=== PATIENT | female | born 1955 | race Caucasian/White ===

== ENCOUNTER 2018-01-29 05:11 | Day surgery (SDC) | payer BC ==
[2018-01-23 10:38] VITALS: BP 153/91
[~2018-01-29] VITALS: Ht 170.2 cm; Wt 119.1 kg
[~2018-01-29 05:11] MED LIST: CHOL40002 PO; DULO30CA2 PO; ESTR2TAB PO; LAMO200T49 PO; LEVO175T5 PO; MULT-230 PO; OMEG-14 PO; OMEG-173 PO; PREN1TAB84 PO
[2018-01-29] MEDS ORDERED: LACTATED RINGERS 1,000 ML IV SCH (05:56)
[2018-01-29] MEDS ORDERED: PROBIOTIC PO (05:58)
[2018-01-29] MEDS ORDERED: LIDOCAINE-MPF 1%, 2ML INFIL PRN (06:00)
[2018-01-29] MEDS ORDERED: LIDOCAINE-MPF 1%, 2ML ONE (06:06)
[2018-01-29] MEDS ORDERED: EPINEPHRINE 1 MG/ML, 1ML ONE (06:15)
[2018-01-29] MEDS ORDERED: BUPIVACAINE/PF 0.25% ONE (06:15)
[2018-01-29] MEDS ORDERED: FENTANYL PF 100 MCG/2ML ONE (06:23)
[2018-01-29] MEDS ORDERED: MIDAZOLAM 1 MG/ML, 2ML ONE (06:23)
[2018-01-29] MEDS ORDERED: PROPOFOL 10 MG/ML, 20ML ONE (06:25)
[2018-01-29] MEDS ORDERED: SUCCINYLCHOLINE 20 MG/ML, 10ML ONE (06:25)
[2018-01-29] MEDS ORDERED: ROCURONIUM 10 MG/ML,10ML ONE (06:25)
[2018-01-29] MEDS ORDERED: MEPERIDINE/PF 25MG/0.5ML IVPush PRN (08:00)
[2018-01-29] MEDS ORDERED: ACETAMINOPHEN 325 MG TABLET PO PRN (08:00)
[2018-01-29] MEDS ORDERED: OXYcodone 5 MG/5 ML ORAL.SOL UDC PO PRN (08:00)
[2018-01-29] MEDS ORDERED: ALBUTEROL SULFATE 2.5 MG/3 ML NPPB PRN (08:00)
[2018-01-29] MEDS ORDERED: FENTANYL PF 100 MCG/2ML IV PRN (08:00)
[2018-01-29] MEDS ORDERED: PROMETHAZINE 25 MG/ML, 1ML IV PRN (08:00)
[2018-01-29] MEDS ORDERED: ACETAMINOPHEN 650 MG/20.3 ML UDC ONE (09:25)
[2018-01-29] MEDS ORDERED: OXYcodone 5 MG/5 ML ORAL.SOL UDC ONE (09:26)
[2018-01-29] MEDS ORDERED: CEFAZOLIN 1,000 MG ONE (15:27)
[2018-01-29] MEDS ORDERED: ONDANSETRON 2MG/ML, 2ML ONE (15:27)
[2018-01-29] MEDS ORDERED: EPHEDRINE 50 MG/ML, 1ML ONE (15:27)
[2018-01-29] MEDS ORDERED: DEXAMETHASONE 4 MG/ML, 1ML ONE (15:27)
== END 2018-01-29 11:40 ==
LOC: OUT 05:11
PROVIDERS: ATTEND Orthopaedic Surgery
DX: M75.112 Incomplete rotator cuff tear or rupture of left shoulder, not specified as traumatic (principal); M75.42 Impingement syndrome of left shoulder; M24.112 Other articular cartilage disorders, left shoulder; M66.822 Spontaneous rupture of other tendons, left upper arm; Z87.891 Personal history of nicotine dependence; Z88.8 Allergy status to other drugs, medicaments and biological substances
CPT/HCPCS: 29822; 29826; 29827; 29828; C1713; J0171; J0330; J0690; J1100; J2250; J2405; J2704; J3010; J3490

== ENCOUNTER → 2018-07-17 | Outpatient (CLI) | payer BC ==
[~2018-07-17] MED LIST changes: +ASCO100019 PO; +ASPI-496 PO; +MAGN250T8 PO; +PROBIOTIC PO; +TOPI100T24 PO
== END | disposition home or self-care (01) ==
LOC: STAR 13:09
PROVIDERS: ATTEND Orthopaedic Surgery
DX: Z01.818 Encounter for other preprocedural examination (principal); M75.41 Impingement syndrome of right shoulder
CPT/HCPCS: 93005

== ENCOUNTER 2018-07-23 09:46 | Day surgery (SDC) | payer BC ==
[~2018-07-23] VITALS: Ht 170.2 cm; Wt 121.5 kg
[~2018-07-23 09:46] MED LIST changes: +BUPIVACAINE/PF-EPI 0.25% 1:200K ONE; +FENTANYL PF 100 MCG/2ML ONE; +MIDAZOLAM 1 MG/ML, 2ML ONE
[2018-07-23] MEDS ORDERED: LACTATED RINGERS 1,000 ML IV SCH (09:54)
[2018-07-23] MEDS ORDERED: LIDOCAINE-MPF 1%, 2ML INFIL ONE (10:00)
[2018-07-23] MEDS ORDERED: ACETAMINOPHEN 500 MG TABLET PO ONE (10:00)
[2018-07-23] MEDS ORDERED: SCOPOLAMINE PATCH, 1.5MG PATCH.TD72 TD ONE (10:00)
[2018-07-23] MEDS ORDERED: GABAPENTIN 300 MG CAPSULE PO ONE (10:00)
[2018-07-23] MEDS ORDERED: FENTANYL PF 100 MCG/2ML IV PRN (10:30)
[2018-07-23] MEDS ORDERED: PROCHLORPERAZINE 5 MG/ML, 2ML IV PRN (10:30)
[2018-07-23] MEDS ORDERED: PROMETHAZINE 25 MG/ML, 1ML IV PRN (10:30)
[2018-07-23] MEDS ORDERED: OXYcodone 5 MG/5 ML ORAL.SOL UDC PO PRN (10:30)
[2018-07-23] MEDS ORDERED: DIPHENHYDRAMINE 50 MG/ML, 1ML IVPush PRN (10:30)
[2018-07-23] MEDS ORDERED: LABETALOL 5MG/ML, 20ML IV PRN (10:30)
[2018-07-23] MEDS ORDERED: HYDROmorphone 1 MG/ML, 1ML IV PRN (10:30)
[2018-07-23] MEDS ORDERED: EPHEDRINE 50 MG/ML, 1ML ONE (11:30)
[2018-07-23] MEDS ORDERED: ONDANSETRON 2MG/ML, 2ML ONE (12:22)
[2018-07-23] MEDS ORDERED: PROPOFOL 10 MG/ML, 20ML ONE (12:22)
[2018-07-23] MEDS ORDERED: GLYCOPYRROLATE 0.2MG/1ML, 5ML ONE (12:22)
[2018-07-23] MEDS ORDERED: CEFAZOLIN 1,000 MG ONE (12:22)
[2018-07-23] MEDS ORDERED: SUCCINYLCHOLINE 20 MG/ML, 10ML ONE (12:22)
[2018-07-23] MEDS ORDERED: NEOSTIGMINE 1 MG/ML, 10ML ONE (12:22)
[2018-07-23] MEDS ORDERED: ROCURONIUM 10MG/ML,5ML ONE (12:22)
[2018-07-23] MEDS ORDERED: DEXAMETHASONE 4 MG/ML, 1ML ONE (12:22)
== END 2018-07-23 15:30 | disposition home or self-care (01) ==
LOC: OUT 09:46
PROVIDERS: ATTEND Orthopaedic Surgery
DX: S43.431A Superior glenoid labrum lesion of right shoulder, initial encounter (principal); S46.011A Strain of muscle(s) and tendon(s) of the rotator cuff of right shoulder, initial encounter; M75.41 Impingement syndrome of right shoulder; Z87.891 Personal history of nicotine dependence; Z79.82 Long term (current) use of aspirin; Z79.899 Other long term (current) drug therapy; Z98.890 Other specified postprocedural states; F39 Unspecified mood [affective] disorder; E03.9 Hypothyroidism, unspecified; E66.01 Morbid (severe) obesity due to excess calories; Z68.41 Body mass index [BMI] 40.0-44.9, adult; Z88.8 Allergy status to other drugs, medicaments and biological substances; X58.XXXA Exposure to other specified factors, initial encounter; Y93.89 Activity, other specified; Y92.89 Other specified places as the place of occurrence of the external cause; Y99.8 Other external cause status
CPT/HCPCS: 29822; 29826; 29827; 64415; C1713; J0330; J0690; J1100; J2250; J2405; J2704; J2710; J3010; J3490; J7120

== ENCOUNTER 2018-08-10 15:52 | Inpatient (IN) | payer BC ==
[~2018-08-10] VITALS: Ht 170.2 cm; Wt 121.5 kg
[~2018-08-10 15:52] MED LIST changes: -BUPIVACAINE/PF-EPI 0.25% 1:200K ONE; -FENTANYL PF 100 MCG/2ML ONE; -MIDAZOLAM 1 MG/ML, 2ML ONE
[2018-08-10 16:22] LABS: BASOPHILS # (AUTO) 0.01 x10^3/uL (0-0.1); BASOPHILS % (AUTO) 0 % (0-1); EOSINOPHILS # (AUTO) 0.09 x10^3/uL (0-0.4); EOSINOPHILS % (AUTO) 1 % (1-7); LYMPHOCYTES # (AUTO) 0.94 x10^3/uL (1-3.4); LYMPHOCYTES % (AUTO) 7 % (22-44); MD NO; MEAN CORPUSCULAR HGB CONC 33.1 g/dL (32.4-35.8); MEAN CORPUSCULAR VOLUME 87.7 fL (80-100); MEAN PLATELET VOLUME 8.5 fL (7.4-10.4); MONOCYTES # (AUTO) 0.51 x10^3/uL (0.2-0.8); MONOCYTES % (AUTO) 4 % (2-9); NEUTROPHILS # (AUTO) 11.76 x10^3/uL (1.8-6.8); NEUTROPHILS % (AUTO) 88 % (42-75); PLATELET COUNT 410 x10^3/uL (130-400); RED BLOOD COUNT 5.03 x10^6/uL (3.82-5.3); RED CELL DISTRIBUTION WIDTH 14.6 % (9.6-15.2)
[2018-08-10] MEDS ORDERED: ONDANSETRON ODT 4 MG ONE (16:23)
[2018-08-10] MEDS ORDERED: MORPHINE SULFATE 4 MG/ML, 1ML ONE (16:24)
[2018-08-10] MEDS ORDERED: ONDANSETRON ODT 4 MG PO ONE (16:30)
[2018-08-10] MEDS ORDERED: morphine SULFATE 10 MG/ML, 1ML IVPush ONE (16:30)
[2018-08-10 16:33] LABS: INTERNATIONAL NORMALIZED RATIO 0.97 (0.93-1.1)
[2018-08-10 16:34] LABS: CHLORIDE 106 mmol/L (98-107)
[2018-08-10 16:35] LABS: ALANINE AMINOTRANSFERASE 533 U/L (12-78); ALBUMIN 3.3 g/dL (3.4-5.0); ANION GAP 9 mmol/L (5-15); CALCIUM 9.5 mg/dL (8.5-10.1); CREATININE 0.85 mg/dL (0.55-1.02)
[2018-08-10 16:40] LABS: ALKALINE PHOSPHATASE 763 U/L (45-117); BILIRUBIN,TOTAL 1.2 mg/dL (0.2-1.0); TOTAL PROTEIN 7.7 g/dL (6.4-8.2); TROPONIN I < 0.015 ng/mL (0.000-0.045)
[2018-08-10] MEDS ORDERED: ENALAPRILAT 1.25 MG/ML, 2ML IVPush PRN (19:30)
[2018-08-10] MEDS ORDERED: LABETALOL 5MG/ML, 20ML IVPush PRN (19:30)
[2018-08-10] MEDS ORDERED: LEVO150T5 PO (19:30)
[2018-08-10] MEDS ORDERED: LAMO100T PO (19:30)
[2018-08-10] MEDS ORDERED: DULO30CA2 PO (19:30)
[2018-08-10] MEDS ORDERED: ONDANSETRON 2MG/ML, 2ML IVPush PRN (19:30)
[2018-08-10] MEDS ORDERED: ESTR2TAB PO (19:30)
[2018-08-10] MEDS ORDERED: ASPI-496 PO (19:30)
[2018-08-10] MEDS ORDERED: HYDROmorphone 2 MG/ML, 1ML ONE ×2 (19:35→22:08)
[2018-08-10] MEDS: HYDROmorphone 1 MG/ML, 1ML IVPush PRN ×2 (19:40→22:10)
[2018-08-10] MEDS: LAMOTRIGINE 100 MG TABLET PO SCH (20:59)
[2018-08-10] MEDS: DULOXETINE 30 MG CAPSULE.DR PO SCH (21:00)
[2018-08-10] MEDS: FAMOTIDINE 20 MG/2 ML IVPush SCH (21:16)
[2018-08-10] MEDS: ENOXAPARIN 30 MG/0.3 ML SQ SCH (21:17)
[2018-08-10] MEDS: TRAZODONE 100MG TABLET PO PRN (21:17)
[2018-08-10] MEDS: D5%-0.45NACL+KCL 20MEQ 1,000 ML IV SCH (22:04)
[2018-08-10] MEDS: CEFOTETAN PMX 1GM/50ML 50 ML IVPB SCH (22:05)
[2018-08-10 22:23] VITALS: BP 104/64
[2018-08-11] MEDS ORDERED: HYDROmorphone 2 MG/ML, 1ML ONE ×7 (00:31→21:12)
[2018-08-11] MEDS: HYDROmorphone 1 MG/ML, 1ML IVPush PRN ×7 (00:34→21:19)
[2018-08-11 00:59] VITALS: BP 100/55
[2018-08-11] MEDS ORDERED: TRAZ-137 PO (02:24)
[2018-08-11] MEDS: LEVOTHYROXINE 150 MCG TABLET PO SCH (05:14)
[2018-08-11] MEDS: D5%-0.45NACL+KCL 20MEQ 1,000 ML IV SCH ×3 (05:33→21:18)
[2018-08-11 05:35] LABS: BASOPHILS # (AUTO) 0.03 x10^3/uL (0-0.1); BASOPHILS % (AUTO) 0 % (0-1); EOSINOPHILS # (AUTO) 0.09 x10^3/uL (0-0.4); EOSINOPHILS % (AUTO) 1 % (1-7); LYMPHOCYTES # (AUTO) 1.13 x10^3/uL (1-3.4); LYMPHOCYTES % (AUTO) 11 % (22-44); MD NO; MEAN CORPUSCULAR HEMOGLOBIN 30.1 pg (27.0-34.8); MEAN CORPUSCULAR HGB CONC 33.3 g/dL (32.4-35.8); MEAN CORPUSCULAR VOLUME 90.3 fL (80-100); MEAN PLATELET VOLUME 9.5 fL (7.4-10.4); MONOCYTES # (AUTO) 0.69 x10^3/uL (0.2-0.8); MONOCYTES % (AUTO) 7 % (2-9); NEUTROPHILS # (AUTO) 8.59 x10^3/uL (1.8-6.8); NEUTROPHILS % (AUTO) 82 % (42-75); PLATELET COUNT 318 x10^3/uL (130-400); RED BLOOD COUNT 4.48 x10^6/uL (3.82-5.3); RED CELL DISTRIBUTION WIDTH 14.9 % (9.6-15.2)
[2018-08-11 05:43] LABS: CHLORIDE 105 mmol/L (98-107)
[2018-08-11 05:57] LABS: ALANINE AMINOTRANSFERASE 390 U/L (12-78); ALBUMIN 3.1 g/dL (3.4-5.0); ALKALINE PHOSPHATASE 622 U/L (45-117); ANION GAP 7 mmol/L (5-15); BILIRUBIN,TOTAL 0.5 mg/dL (0.2-1.0); CALCIUM 8.4 mg/dL (8.5-10.1); CREATININE 1.15 mg/dL (0.55-1.02)
[2018-08-11 07:36] VITALS: BP 119/59
[2018-08-11] MEDS: DULOXETINE 30 MG CAPSULE.DR PO SCH ×2 (09:00→21:18)
[2018-08-11] MEDS: ESTRADIOL 2 MG TABLET PO SCH ×2 (09:00→14:00)
[2018-08-11] MEDS: LAMOTRIGINE 100 MG TABLET PO SCH ×2 (09:00→21:00)
[2018-08-11] MEDS: FAMOTIDINE 20 MG/2 ML IVPush SCH ×2 (09:04→21:18)
[2018-08-11] MEDS: ENOXAPARIN 30 MG/0.3 ML SQ SCH ×2 (09:05→21:18)
[2018-08-11] MEDS: CEFOTETAN PMX 1GM/50ML 50 ML IVPB SCH ×2 (10:00→21:50)
[2018-08-11 12:52] VITALS: BP 106/60
[2018-08-11] MEDS: TRAZODONE 100MG TABLET PO PRN (16:15)
[2018-08-11 20:13] VITALS: BP 137/71
[2018-08-12] MEDS ORDERED: HYDROmorphone 2 MG/ML, 1ML ONE ×6 (01:43→21:09)
[2018-08-12 01:47] VITALS: BP 111/70
[2018-08-12] MEDS: HYDROmorphone 1 MG/ML, 1ML IVPush PRN ×6 (02:02→21:13)
[2018-08-12] MEDS: D5%-0.45NACL+KCL 20MEQ 1,000 ML IV SCH ×3 (04:09→18:27)
[2018-08-12] MEDS: LEVOTHYROXINE 150 MCG TABLET PO SCH (05:53)
[2018-08-12 06:12] LABS: ALANINE AMINOTRANSFERASE 208 U/L (12-78); ALBUMIN 2.6 g/dL (3.4-5.0); ALKALINE PHOSPHATASE 450 U/L (45-117); BILIRUBIN,TOTAL 0.6 mg/dL (0.2-1.0); TOTAL PROTEIN 6.5 g/dL (6.4-8.2)
[2018-08-12 06:15] LABS: BILIRUBIN, DIRECT < 0.1 mg/dL (0.1-0.2); BILIRUBIN,INDIRECT 0.5 mg/dL (0.0-2.0)
[2018-08-12] MEDS ORDERED: POLYETHYLENE GLYCOL 17 GM PACKET PO ONE (07:00)
[2018-08-12 07:53] VITALS: BP 146/73
[2018-08-12] MEDS: FAMOTIDINE 20 MG/2 ML IVPush SCH ×2 (08:20→20:58)
[2018-08-12] MEDS: DOCUSATE 100 MG CAPSULE PO SCH ×2 (08:20→20:58)
[2018-08-12] MEDS: LAMOTRIGINE 100 MG TABLET PO SCH ×2 (08:21→20:59)
[2018-08-12] MEDS: DULOXETINE 30 MG CAPSULE.DR PO SCH ×2 (08:21→20:58)
[2018-08-12] MEDS: ENOXAPARIN 30 MG/0.3 ML SQ SCH ×2 (08:43→20:59)
[2018-08-12] MEDS: CEFOTETAN PMX 1GM/50ML 50 ML IVPB SCH ×2 (10:08→22:08)
[2018-08-12 13:02] VITALS: BP 119/68
[2018-08-12 20:05] VITALS: BP 131/74
[2018-08-12] MEDS: TRAZODONE 100MG TABLET PO PRN (20:58)
[2018-08-13] MEDS ORDERED: HYDROmorphone 2 MG/ML, 1ML ONE ×6 (01:12→20:43)
[2018-08-13] MEDS: HYDROmorphone 1 MG/ML, 1ML IVPush PRN ×6 (01:14→20:48)
[2018-08-13] MEDS: D5%-0.45NACL+KCL 20MEQ 1,000 ML IV SCH ×4 (01:34→22:18)
[2018-08-13 02:39] VITALS: BP 135/79
[2018-08-13 05:14] LABS: ALBUMIN 2.5 g/dL (3.4-5.0)
[2018-08-13 05:18] LABS: BILIRUBIN, DIRECT 0.2 mg/dL (0.1-0.2); BILIRUBIN,INDIRECT 0.2 mg/dL (0.0-2.0); BILIRUBIN,TOTAL 0.4 mg/dL (0.2-1.0); TOTAL PROTEIN 6.4 g/dL (6.4-8.2)
[2018-08-13] MEDS: LEVOTHYROXINE 150 MCG TABLET PO SCH (06:01)
[2018-08-13 07:15] VITALS: BP 136/86
[2018-08-13] MEDS: DOCUSATE 100 MG CAPSULE PO SCH ×2 (08:14→20:48)
[2018-08-13] MEDS: LAMOTRIGINE 100 MG TABLET PO SCH ×2 (08:14→20:48)
[2018-08-13] MEDS: FAMOTIDINE 20 MG/2 ML IVPush SCH ×2 (08:14→20:48)
[2018-08-13] MEDS: DULOXETINE 30 MG CAPSULE.DR PO SCH ×2 (08:14→20:48)
[2018-08-13] MEDS: ESTRADIOL 2 MG TABLET PO SCH (08:15)
[2018-08-13] MEDS: CEFOTETAN PMX 1GM/50ML 50 ML IVPB SCH ×2 (09:44→22:18)
[2018-08-13] MEDS: ENOXAPARIN 30 MG/0.3 ML SQ SCH ×2 (09:45→20:49)
[2018-08-13 12:37] VITALS: BP 147/58
[2018-08-13 19:43] VITALS: BP 138/91
[2018-08-13] MEDS: TRAZODONE 100MG TABLET PO PRN (20:48)
[2018-08-14 04:00] VITALS: BP 130/88
[2018-08-14] MEDS ORDERED: LEVOTHYROXINE 75 MCG TABLET ONE (05:36)
[2018-08-14] MEDS: LEVOTHYROXINE 150 MCG TABLET PO SCH (05:39)
[2018-08-14] MEDS: D5%-0.45NACL+KCL 20MEQ 1,000 ML IV SCH ×2 (05:39→12:57)
[2018-08-14 06:16] LABS: ALBUMIN 2.8 g/dL (3.4-5.0)
[2018-08-14 06:22] LABS: BILIRUBIN, DIRECT 0.2 mg/dL (0.1-0.2); BILIRUBIN,INDIRECT 0.3 mg/dL (0.0-2.0); BILIRUBIN,TOTAL 0.5 mg/dL (0.2-1.0); TOTAL PROTEIN 7.3 g/dL (6.4-8.2)
[2018-08-14] MEDS ORDERED: HYDROmorphone 2 MG/ML, 1ML ONE ×6 (07:20→21:38)
[2018-08-14] MEDS: HYDROmorphone 1 MG/ML, 1ML IVPush PRN ×6 (07:23→21:44)
[2018-08-14 08:40] VITALS: BP 133/72
[2018-08-14] MEDS: DOCUSATE 100 MG CAPSULE PO SCH ×2 (10:04→21:00)
[2018-08-14] MEDS: LAMOTRIGINE 100 MG TABLET PO SCH ×2 (10:04→21:43)
[2018-08-14] MEDS: ENOXAPARIN 30 MG/0.3 ML SQ SCH ×2 (10:04→21:43)
[2018-08-14] MEDS: DULOXETINE 30 MG CAPSULE.DR PO SCH ×2 (10:04→21:43)
[2018-08-14] MEDS: ESTRADIOL 2 MG TABLET PO SCH (10:04)
[2018-08-14] MEDS: FAMOTIDINE 20 MG/2 ML IVPush SCH ×2 (10:04→21:42)
[2018-08-14] MEDS: CEFOTETAN PMX 1GM/50ML 50 ML IVPB SCH ×2 (10:25→21:48)
[2018-08-14 13:52] VITALS: BP 124/72
[2018-08-14 19:27] VITALS: BP 127/63
[2018-08-14] MEDS: TRAZODONE 100MG TABLET PO PRN (21:43)
[2018-08-15] MEDS ORDERED: HYDROmorphone 2 MG/ML, 1ML ONE ×5 (00:39→17:28)
[2018-08-15] MEDS: HYDROmorphone 1 MG/ML, 1ML IVPush PRN ×4 (00:42→11:10)
[2018-08-15] MEDS: D5%-0.45NACL+KCL 20MEQ 1,000 ML IV SCH ×3 (00:42→13:20)
[2018-08-15 01:32] VITALS: BP 105/67
[2018-08-15] MEDS ORDERED: LEVOTHYROXINE 75 MCG TABLET ONE (05:48)
[2018-08-15] MEDS: LEVOTHYROXINE 150 MCG TABLET PO SCH (06:00)
[2018-08-15 06:19] LABS: ALBUMIN 2.5 g/dL (3.4-5.0); BILIRUBIN, DIRECT 0.2 mg/dL (0.1-0.2)
[2018-08-15 06:32] LABS: BILIRUBIN,INDIRECT 0.1 mg/dL (0.0-2.0); BILIRUBIN,TOTAL 0.3 mg/dL (0.2-1.0); TOTAL PROTEIN 6.1 g/dL (6.4-8.2)
[2018-08-15] MEDS: DULOXETINE 30 MG CAPSULE.DR PO SCH ×2 (08:29→21:20)
[2018-08-15] MEDS: LAMOTRIGINE 100 MG TABLET PO SCH ×2 (08:29→21:20)
[2018-08-15] MEDS: ESTRADIOL 2 MG TABLET PO SCH (08:29)
[2018-08-15] MEDS: DOCUSATE 100 MG CAPSULE PO SCH ×3 (08:30→21:20)
[2018-08-15] MEDS: FAMOTIDINE 20 MG/2 ML IVPush SCH ×2 (08:30→21:20)
[2018-08-15 09:48] VITALS: BP 125/78
[2018-08-15] MEDS: ENOXAPARIN 30 MG/0.3 ML SQ SCH ×2 (10:00→21:46)
[2018-08-15] MEDS: CEFOTETAN PMX 1GM/50ML 50 ML IVPB SCH ×2 (11:10→21:46)
[2018-08-15] MEDS ORDERED: ACETAMINOPHEN 500 MG TABLET PO ONE ×2 (12:30→14:00)
[2018-08-15] MEDS ORDERED: GABAPENTIN 300 MG CAPSULE PO ONE ×2 (12:30→14:00)
[2018-08-15] MEDS ORDERED: SCOPOLAMINE PATCH, 1.5MG PATCH.TD72 TD ONE ×2 (12:30→14:00)
[2018-08-15] MEDS ORDERED: OXYcodone IR 5MG TABLET PO ONE ×2 (12:30→14:00)
[2018-08-15] MEDS ORDERED: FENTANYL PF 250 MCG/5ML ONE (14:32)
[2018-08-15] MEDS ORDERED: PROMETHAZINE 25 MG/ML, 1ML IV PRN (15:00)
[2018-08-15] MEDS ORDERED: PROCHLORPERAZINE 5 MG/ML, 2ML IV PRN (15:00)
[2018-08-15] MEDS ORDERED: hydrALAzine 20 MG/ML, 1ML IV PRN (15:00)
[2018-08-15] MEDS ORDERED: MEPERIDINE/PF 25MG/0.5ML IVPush PRN (15:00)
[2018-08-15] MEDS ORDERED: DIPHENHYDRAMINE 50 MG/ML, 1ML IVPush PRN (15:00)
[2018-08-15] MEDS ORDERED: LABETALOL 5MG/ML, 20ML IV PRN (15:00)
[2018-08-15] MEDS ORDERED: OXYcodone 5 MG/5 ML ORAL.SOL UDC PO PRN (15:00)
[2018-08-15] MEDS ORDERED: BUPIVACAINE/PF-EPI 0.5% 1:200K ONE (15:17)
[2018-08-15] MEDS ORDERED: GLYCOPYRROLATE 0.2MG/1ML, 5ML ONE (15:45)
[2018-08-15] MEDS ORDERED: KETOROLAC 30 MG/1 ML ONE (15:45)
[2018-08-15] MEDS ORDERED: DEXAMETHASONE 4 MG/ML, 5ML ONE (15:45)
[2018-08-15] MEDS ORDERED: PROPOFOL 10 MG/ML, 20ML ONE (15:45)
[2018-08-15] MEDS ORDERED: ONDANSETRON 2MG/ML, 2ML ONE (15:45)
[2018-08-15] MEDS ORDERED: SUCCINYLCHOLINE 20 MG/ML, 10ML ONE (15:45)
[2018-08-15] MEDS ORDERED: NEOSTIGMINE 1 MG/ML, 10ML ONE (15:45)
[2018-08-15] MEDS ORDERED: BUPIVACAINE/PF-EPI 0.5% 1:200K INFIL ONE (16:17)
[2018-08-15] MEDS ORDERED: OXYcodone 5 MG/5 ML ORAL.SOL UDC ONE (17:18)
[2018-08-15] MEDS ORDERED: FENTANYL PF 100 MCG/2ML ONE ×2 (17:18→17:47)
[2018-08-15] MEDS: FENTANYL PF 100 MCG/2ML IV PRN ×3 (17:20→18:01)
[2018-08-15] MEDS ORDERED: OXYcodone/APAP 10/325MG TABLET PO PRN (17:30)
[2018-08-15] MEDS: HYDROmorphone 1 MG/ML, 1ML IV PRN ×4 (17:30→17:50)
[2018-08-15] MEDS ORDERED: DIPHENHYDRAMINE 50 MG/ML, 1ML ONE (17:47)
[2018-08-15 21:18] VITALS: BP 119/68
[2018-08-16] MEDS: D5%-0.45NACL+KCL 20MEQ 1,000 ML IV SCH ×2 (00:14→07:36)
[2018-08-16 03:55] VITALS: BP 127/72
[2018-08-16] MEDS: LEVOTHYROXINE 150 MCG TABLET PO SCH (05:36)
[2018-08-16] MEDS ORDERED: HYDROmorphone 2 MG/ML, 1ML ONE ×3 (08:18→14:37)
[2018-08-16] MEDS: LAMOTRIGINE 100 MG TABLET PO SCH (08:21)
[2018-08-16] MEDS: DULOXETINE 30 MG CAPSULE.DR PO SCH (08:21)
[2018-08-16] MEDS: FAMOTIDINE 20 MG/2 ML IVPush SCH (08:21)
[2018-08-16] MEDS: ESTRADIOL 2 MG TABLET PO SCH (08:21)
[2018-08-16] MEDS: HYDROmorphone 1 MG/ML, 1ML IVPush PRN ×3 (08:22→14:42)
[2018-08-16] MEDS: DOCUSATE 100 MG CAPSULE PO SCH (09:00)
[2018-08-16 09:09] VITALS: BP 137/71
[2018-08-16] MEDS: CEFOTETAN PMX 1GM/50ML 50 ML IVPB SCH (09:44)
[2018-08-16] MEDS: ENOXAPARIN 30 MG/0.3 ML SQ SCH (10:00)
[2018-08-16 14:22] VITALS: BP 128/78
[2018-08-16] MEDS ORDERED: HYDR-882 PO (14:29)
== END 2018-08-16 15:33 | disposition home or self-care (01) | DRG 417 ==
LOC: ED 19:28 → EDIP 19:37 → 4NOR 20:00
PROVIDERS: ADMIT Surgery; ATTEND Surgery
PROC: 0FT44ZZ Resection of Gallbladder, Percutaneous Endoscopic Approach (ICD-10-PCS; principal; 2018-08-15 14:30)
DX: K80.10 Calculus of gallbladder with chronic cholecystitis without obstruction (principal); K85.10 Biliary acute pancreatitis without necrosis or infection; Z68.41 Body mass index [BMI] 40.0-44.9, adult; K76.0 Fatty (change of) liver, not elsewhere classified; K66.0 Peritoneal adhesions (postprocedural) (postinfection); E03.9 Hypothyroidism, unspecified; F12.90 Cannabis use, unspecified, uncomplicated; E66.01 Morbid (severe) obesity due to excess calories; F32.9 Major depressive disorder, single episode, unspecified; K59.00 Constipation, unspecified; K82.8 Other specified diseases of gallbladder; Z88.9 Allergy status to unspecified drugs, medicaments and biological substances; Z88.1 Allergy status to other antibiotic agents; Z88.6 Allergy status to analgesic agent; Z88.8 Allergy status to other drugs, medicaments and biological substances; Z98.84 Bariatric surgery status; Z90.710 Acquired absence of both cervix and uterus
CPT/HCPCS: 36415; 99285; J3490; S0028; 71045; 74181; 76700; 80053; 80076; 83690; 84484; 85025; 85610; 85730; 88304; 93005; 96374; G0378; J1100; J1170; J1650; J1885; J2405; J2704; J2710; J3010; Q0162; J0330; J1200; J2270; J3480; S0074